=== PATIENT | female | born 1960 | race Caucasian/White ===

== ENCOUNTER 2018-05-13 21:38 | Emergency (ER) | payer MEDICAID ==
[~2018-05-13] VITALS: Ht 165.1 cm; Wt 113.0 kg
[2018-05-13] MEDS ORDERED: LIDOCAINE HCL/EPINEPHRINE 1%-EPI 1:100,000 30 ML VIAL INFIL ONE (23:00)
[2018-05-13] MEDS ORDERED: KETOROLAC 60MG/2ML VIAL IM ONE (23:00)
[2018-05-14 01:34] VITALS: BP 110/60
== END 2018-05-14 01:35 | disposition home or self-care (01) ==
LOC: ER 21:38
DX: S06.0X9A Concussion with loss of consciousness of unspecified duration, initial encounter (principal); S52.592A Other fractures of lower end of left radius, initial encounter for closed fracture; S01.81XA Laceration without foreign body of other part of head, initial encounter; S02.2XXA Fracture of nasal bones, initial encounter for closed fracture; R22.42 Localized swelling, mass and lump, left lower limb; I10 Essential (primary) hypertension; F10.129 Alcohol abuse with intoxication, unspecified; Y90.9 Presence of alcohol in blood, level not specified; Z95.2 Presence of prosthetic heart valve; Z88.0 Allergy status to penicillin; Z90.710 Acquired absence of both cervix and uterus; W01.0XXA Fall on same level from slipping, tripping and stumbling without subsequent striking against object, initial encounter; Y93.89 Activity, other specified; Y92.89 Other specified places as the place of occurrence of the external cause
CPT/HCPCS: 12002; 29105; 70450; 70486; 73110; 96372; 99284; J1885; Z7610; A4565